=== PATIENT | male | born 1975 | race Caucasian/White ===

== ENCOUNTER 2019-02-10 08:12 | Outpatient (CLI) | payer MEDICAID ==
[2019-02-10 08:34] VITALS: BMI 29.7
== END 2019-02-10 08:18 | disposition critical access hospital (66) ==
LOC: AMBL 08:12
PROVIDERS: ATTEND Emergency Medicine
DX: R51 Headache (principal); R52 Pain, unspecified; R50.9 Fever, unspecified; R11.0 Nausea

== ENCOUNTER 2019-02-10 08:22 | Emergency (ER) ==
[2019-02-10 08:34] VITALS: BP 155/95; TEMP 101.1; BMI 29.7
--- NOTE | 2019-02-10 09:00 | ED.PDOC ---
General ED Provider: Dr. TRISHA PEREA Chief Complaint: Non-specific Complaint Stated Complaint: Fever, chills, Aching. Patient states recently completed a 5 day cruise to [place] arriving back home on Saturday. States did not feel well on the cruise and spent much time in his cabin due to "dizziness/vertigo". Did not feel well all week. Remembers one shore excusion to [facility]. States did not eat any "strange" food. Denies tick or Mosquito bite. Denies skin rash. Complained of diffuse myalgias/arthralgias, fever and rigorus chills. 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 Smokes 1/2 ppd. Additionally his son was on trip and became ill yesterday with similar symptom and has N-V Time Seen by Physician: 08:45 Mode of Arrival: Ambulance Information Source: Patient Exam Limitations: No limitations Primary Care Provider: TRISHA WATERS Nursing and Triage Documentation Reviewed and Agree: Yes Does patient meet sepsis criteria?: Yes If yes, has appropriate treatment been initiated?: Yes System Inflammatory Response Syndrome: Temp 101F or Greater, Pulse >90 BPM Sepsis Protocol: For patient's 13 years and over: Temp is 96.8 and below OR 101 and greater Pulse >90 BPM Resp >20/minute Acutely Altered Mental Status Are patient's symptoms suggestive of a new infection, such as: -Pneumonia -Skin, Soft Tissue -Endocarditis -UTI -Bone, Joint Infection -Implantable Device -Acute Abdominal Infection -Wound Infection -Meningitis -Blood Stream Catheter Infection -Unknown Respiratory Complaint Exam - Respiratory Complaint/Exam Onset/Duration: 2days Symptoms Are: Still present Timing: Intermittent Initial Severity: Moderate Current Severity: Moderate Location: Chest Character: Reports: Non-productive cough Aggravating: Reports: Recumbent position Alleviating: Reports: None Associated Signs and Symptoms: Reports: Fever, Chills, Sore throat (Throat described as "dry") History of Healthcare-Acquired Pneumonia: No Related Surgical History: Reports: None Pulmonary Embolism Risk Factors: None Cardiac Risk Factors: Reports: None Pseudomonas Risk Factors: Reports: None Tuberculosis Risk Factors: Reports: Smoking Status Asthmaticus Risk Factors: Reports: None Home Oxygen Use: No Recent Stress Test: No Recent Echo/LV Function: No Current Antibiotic Use: No Current Asthma Medication Use: No Respiratory Distress: None Inadequate Respiratory Effort: No Dysphagia Present: No Stridor Present: No JVD Present: No Accessory Muscle Use: No Retractions: Not Present Diminished Breath Sounds: No Sinus Tenderness: None Grunting Respirations: No Kussmaul Respirations: No Differential Diagnoses: URI, Influenza Review of Systems - Review Of Systems Constitutional: Reports: Chills, Fever, Malaise, Weakness, Loss of appetite Eyes: Reports: No symptoms Ears, Nose, Mouth, Throat: Reports: Throat pain Respiratory: Reports: Cough GI: Reports: Nausea, Vomiting : Reports: No symptoms Musculoskeletal: Reports: No symptoms Skin: Reports: No symptoms Neurological: Reports: Headache, Tingling, Unable to move lower ext Endocrine: Reports: No symptoms Hematologic/Lymphatic: Reports: No symptoms All Other Systems: Reviewed and Negative Past Medical History - Past Medical History Previously Healthy: Yes Endocrine: Reports: None Cardiovascular: Reports: None Respiratory: Reports: None Hematological: Reports: None Gastrointestinal: Reports: None Genitourinary: Reports: None Neuro/Psych: Reports: None Musculoskeletal: Reports: None Cancer: Reports: None - Surgical History General Surgical History: Reports: None - Family History Family History: Reports: None - Social History Smoking Status: Current every day smoker, Light tobacco smoker Hx Substance Use: No Alcohol Screening: Occasionally Physical Exam - Physical Exam Appearance: Ill-appearing Pain Distress: Mild Eyes: KENIA, EOMI, Conjunctiva clear ENT: Ears normal, Nose normal, Oropharynx normal, Erythema Neck: Supple (No detectable nuchal rigidity or tightness, no tenderness to exam) Respiratory: Airway patent, Breath sounds clear, Breath sounds equal, Respirations nonlabored Cardiovascular: RRR, Pulses normal, No rub, No murmur GI/: Soft, Nontender, No masses, Bowel sounds normal, No Organomegaly Musculoskeletal: Normal strength, ROM intact, No edema, No calf tenderness Skin: Warm, Dry, Normal color Neurological: Sensation intact, Motor intact, Reflexes intact, Cranial nerves intact, Alert, Oriented Psychiatric: Affect appropriate, Mood appropriate Interpretation - Radiology Interpretation Radiology Interpretation By: Radiologist Exam Interpreted: CT Scan (Head-no acute abnorm. Oral Max Facial-Periapical dental abscess. multiple teeth missing; Abdom Pelvis-no acute findings; ) Critical Care Note - Critical Care Note Total Time (mins): 60 Course - Course Hematology/Chemistry: 02/10/19 09:20 02/10/19 09:20 Orders, Labs, Meds: Lab Review 02/10/19 02/10/19 02/10/19 09:20 09:20 09:20 WBC 10.48 H RBC 4.78 Hgb 13.9 L Hct 41.9 L MCV 87.7 MCH 29.1 MCHC 33.2 RDW Coeff of Telly 14.2 Plt Count 242 Immature Gran % (Auto) 0.3 Neut % (Auto) 82.0 Lymph % (Auto) 9.4 L [place] % (Auto) 8.0 Eos % (Auto) 0.1 Baso % (Auto) 0.2 Immature Gran # (Auto) 0.0 Neut # (Auto) 8.6 H Lymph # (Auto) 1.0 [place] # (Auto) 0.8 Eos # (Auto) 0.0 Baso # (Auto) 0.0 ESR Sodium 136.4 Potassium 3.62 Chloride 100.9 Carbon Dioxide 25.7 Anion Gap 13.42 BUN 10.9 Creatinine 0.87 Estimated GFR (MDRD) 97.00 BUN/Creatinine Ratio 12.52 Glucose 142.4 H Lactic Acid Calcium 8.73 Total Bilirubin 0.32 AST 34.0 ALT 34.9 Alkaline Phosphatase 71.6 Total Creatine Kinase 157.6 CK-MB (CK-2) 0.437 CK-MB (CK-2) % 0.2700 Total Protein 7.03 Albumin 4.09 Globulin 2.94 Albumin/Globulin Ratio 1.39 Urine Opiates Screen Ur Oxycodone Screen Urine Methadone Screen Ur Propoxyphene Screen Ur Barbiturates Screen U Tricyclic Antidepress Ur Phencyclidine Scrn Ur Amphetamine Screen U Methamphetamines Scrn U Benzodiazepines Scrn Urine Cocaine Screen U Cannabinoids Screen Lyme IgG 18 kDa Band Lyme IgG 23 kDa Band Lyme IgG 28 kDa Band Lyme IgG 30 kDa Band Lyme IgG 39 kDa Band Lyme IgG 41 kDa Band Lyme IgG 45 kDa Band Lyme IgG 58 kDa Band Lyme IgG 66 kDa Band Lyme IgG 93 kDa Band Lyme IgG W Blot Interp Lyme IgM 23 kDa Band Lyme IgM 39 kDa Band Lyme IgM 41 kDa Band Lyme IgM Interpretaton Hepatitis A IgM Ab Negative Hep Bs Antigen Negative Hep B Core IgM Ab Negative Hep C Ab Signal/Cutoff 0.1 Influ A Molecular Assay Influ B Molecular Assay Spotted Fever Grp IgM Rickettsia IgG Ab Rickettsia IgG Ab IFA 02/10/19 02/10/19 02/10/19 09:20 09:20 09:20 WBC RBC Hgb Hct MCV MCH MCHC RDW Coeff of Telly Plt Count Immature Gran % (Auto) Neut % (Auto) Lymph % (Auto) [place] % (Auto) Eos % (Auto) Baso % (Auto) Immature Gran # (Auto) Neut # (Auto) Lymph # (Auto) [place] # (Auto) Eos # (Auto) Baso # (Auto) ESR 6 Sodium Potassium Chloride Carbon Dioxide Anion Gap BUN Creatinine Estimated GFR (MDRD) BUN/Creatinine Ratio Glucose Lactic Acid 1.19 Calcium Total Bilirubin AST ALT Alkaline Phosphatase Total Creatine Kinase CK-MB (CK-2) CK-MB (CK-2) % Total Protein Albumin Globulin Albumin/Globulin Ratio Urine Opiates Screen Ur Oxycodone Screen Urine Methadone Screen Ur Propoxyphene Screen Ur Barbiturates Screen U Tricyclic Antidepress Ur Phencyclidine Scrn Ur Amphetamine Screen U Methamphetamines Scrn U Benzodiazepines Scrn Urine Cocaine Screen U Cannabinoids Screen Lyme IgG 18 kDa Band Absent Lyme IgG 23 kDa Band Absent Lyme IgG 28 kDa Band Absent Lyme IgG 30 kDa Band Absent Lyme IgG 39 kDa Band Absent Lyme IgG 41 kDa Band Absent Lyme IgG 45 kDa Band Absent Lyme IgG 58 kDa Band Absent Lyme IgG 66 kDa Band Absent Lyme IgG 93 kDa Band Absent Lyme IgG W Blot Interp Negative Lyme IgM 23 kDa Band Absent Lyme IgM 39 kDa Band Absent Lyme IgM 41 kDa Band Absent Lyme IgM Interpretaton Negative Hepatitis A IgM Ab Hep Bs Antigen Hep B Core IgM Ab Hep C Ab Signal/Cutoff Influ A Molecular Assay Influ B Molecular Assay Spotted Fever Grp IgM 1.02 H Rickettsia IgG Ab Positive H Rickettsia IgG Ab IFA 02/10/19 02/10/19 09:58 10:00 WBC RBC Hgb Hct MCV MCH MCHC RDW Coeff of Telly Plt Count Immature Gran % (Auto) Neut % (Auto) Lymph % (Auto) [place] % (Auto) Eos % (Auto) Baso % (Auto) Immature Gran # (Auto) Neut # (Auto) Lymph # (Auto) [place] # (Auto) Eos # (Auto) Baso # (Auto) ESR Sodium Potassium Chloride Carbon Dioxide Anion Gap BUN Creatinine Estimated GFR (MDRD) BUN/Creatinine Ratio Glucose Lactic Acid Calcium Total Bilirubin AST ALT Alkaline Phosphatase Total Creatine Kinase CK-MB (CK-2) CK-MB (CK-2) % Total Protein Albumin Globulin Albumin/Globulin Ratio Urine Opiates Screen Negative Ur Oxycodone Screen Negative Urine Methadone Screen Negative Ur Propoxyphene Screen Negative Ur Barbiturates Screen Negative U Tricyclic Antidepress Negative Ur Phencyclidine Scrn Negative Ur Amphetamine Screen Positive U Methamphetamines Scrn Positive U Benzodiazepines Scrn Negative Urine Cocaine Screen Negative U Cannabinoids Screen Negative Lyme IgG 18 kDa Band Lyme IgG 23 kDa Band Lyme IgG 28 kDa Band Lyme IgG 30 kDa Band Lyme IgG 39 kDa Band Lyme IgG 41 kDa Band Lyme IgG 45 kDa Band Lyme IgG 58 kDa Band Lyme IgG 66 kDa Band Lyme IgG 93 kDa Band Lyme IgG W Blot Interp Lyme IgM 23 kDa Band Lyme IgM 39 kDa Band Lyme IgM 41 kDa Band Lyme IgM Interpretaton Hepatitis A IgM Ab Hep Bs Antigen Hep B Core IgM Ab Hep C Ab Signal/Cutoff Influ A Molecular Assay Positive by naat H Influ B Molecular Assay Negative by naat Spotted Fever Grp IgM Rickettsia IgG Ab Rickettsia IgG Ab IFA Orders Category Date Time Status EKG-(ED ONLY) Stat CARDIO 02/10/19 09:01 Completed IV [ED IV/MEDIPORT/POWERPORT] .ONCE EMERGENCY 02/10/19 09:01 Active BLOOD CULTURE Stat LAB 02/10/19 09:20 Completed CBC W/ AUTO DIFF Stat LAB 02/10/19 09:20 Completed CMP [COMPREHENSIVE METABOLIC PANEL] Stat LAB 02/10/19 09:20 Completed CPK [CREATINE KINASE] Stat LAB 02/10/19 09:20 Completed ESR Stat LAB 02/10/19 09:20 Completed FLU A & B MOLECULAR [FLU A/B MOLECULAR] Stat LAB 02/10/19 09:58 Completed HEPATITIS PANEL, ACUTE Stat LAB 02/10/19 09:20 Completed LACTIC ACID Stat LAB 02/10/19 09:20 Completed LYME, WESTERN BLOT, SERUM Stat LAB 02/10/19 09:20 Completed RAPID STREP SCREEN [MOLECULAR GROUP A STREP] Stat LAB 02/10/19 09:58 Completed WALLACE MTN SPOTTED FEVER,IgG Stat LAB 02/10/19 09:20 Completed WALLACE MTN SPOTTED FEVER,IgM Stat LAB 02/10/19 09:20 Completed URINE DRUG SCREEN (RAPID FOR ED) [DRUG SCREEN, URINE, LAB 02/10/19 10:00 Completed RAPID] Stat 0.9 % Sodium Chloride [Saline Flush] MEDS 02/10/19 09:01 Discontinued 1 syr IVF PRN PRN 0.9 % Sodium Chloride [Saline Flush] MEDS 02/10/19 09:44 Discontinued 1 syr IVF PRN PRN Acetaminophen [Tylenol] MEDS 02/10/19 09:18 Discontinued 650 mg PO ONCE STA Oseltamivir Phosphate [Tamiflu] MEDS 02/10/19 10:45 Discontinued 75 mg PO ONCE STA Piperacillin Sodium/Tazobactam [Zosyn 3.375 gm] 3.375 MEDS 02/10/19 10:35 Discontinued gm 0.9 % Sodium Chloride [Sodium Chloride] 50 ml IV ONCE Sodium Chloride 0.9% [Sodium Chloride] 1,000 ml MEDS 02/10/19 09:[address] ABDOMEN/PELVIS WO CONTRAST Stat RADS 02/10/19 09:[address] CHEST W/O CONTRAST Stat RADS 02/10/19 09:[address] HEAD W/O CONTRAST Stat RADS 02/10/19 09:[address] MAXILLOFACIAL W/O CONTRAST Stat RADS 02/10/19 09:42 Completed Medications Discontinued Medications Generic Name Dose Route Start Last Admin Trade Name Freq PRN Reason Stop Dose Admin Acetaminophen 650 mg 02/10/19 09:18 02/10/19 10:08 Tylenol PO 02/10/19 09:19 650 mg ONCE STA Administration Sodium Chloride 1,000 mls @ 500 mls/hr 02/10/19 09:44 02/10/19 10:23 Sodium Chloride IV 02/10/19 11:43 500 mls/hr BOLUS STA Administration Piperacillin Sod/Tazobactam 50 mls @ 50 mls/hr 02/10/19 10:35 02/10/19 10:54 Sod 3.375 gm/ Sodium Chloride IV 02/10/19 11:34 50 mls/hr ONCE STA Administration Oseltamivir Phosphate 75 mg 02/10/19 10:45 02/10/19 10:58 Tamiflu PO 02/10/19 10:46 75 mg ONCE STA Administration Sodium Chloride 1 syr 02/10/19 09:01 02/10/19 10:22 Saline Flush IVF 1 syr PRN PRN Administration To flush IV Sodium Chloride 1 syr 02/10/19 09:44 Saline Flush IVF PRN PRN To flush IV Vital Signs: Temp Pulse Resp BP Pulse Ox 02/10/19 08:51 101.1 F H 99 H 20 155/95 H 95 06/11/19 08:24 101.1 F H 99 H 20 155/95 H 95 Departure - Departure Time of Disposition: 13:45 Disposition: HOME SELF-CARE Discharge Problem: Cephalgia, Streptococcal sore throat, Influenza A H1N1 infection, Methamphetamine abuse, Dental abscess Instructions: Strep Throat (ED), Influenza (ED) Condition: Fair Pt referred to PMD for follow-up: Yes IPMP verified?: Yes Additional Instructions: Force fluids Seek follow up with Dentist Avoid Meth Use Take Tylenol o tylenol for fever or pain Prescriptions: Amoxicillin/Potassium Clav [Augmentin 875-125 Tablet] 1 each PO BIDPC 10 Days # 20 tablet Oseltamivir Phosphate [Tamiflu] 75 mg PO DAILY #4 capsule Allergies/Adverse Reactions: Allergies No Known Allergies Allergy (Unverified 02/10/19 08:54) Home Medications: Ambulatory Orders Amoxicillin/Potassium Clav [Augmentin 875-125 Tablet] 1 each PO BIDPC 10 Days # 20 tablet 02/10/19 Oseltamivir Phosphate [Tamiflu] 75 mg PO DAILY #4 capsule 02/10/19 Transfer Form Completed: Yes Disposition Discussed With: Patient Additional Information: Patient and aprised of diagnostic findings/ Has received IV fluids and IV antibiotics Feeling better being capable of moving upper and lower extremities without unequal paresis
[2019-02-10] MEDS ORDERED: TYLENOL PO STA (09:18)
[2019-02-10] MEDS ORDERED: SODIUM CHLORIDE 1,000 ML IV STA (09:44)
--- NOTE | 2019-02-10 09:57 | CT ---
EXAM: CT of the head without contrast History: Severe headache. Comparison: Head CT 06/03/2011 Technique: Multiplanar CT images through the head were obtained without the administration of IV con trast Findings: Mild to moderate mucosal thickening of the paranasal sinuses. Mastoid air cells are clear . No acute calvarial abnormalities. Intracranially the ventricular and cisternal spaces are normal in size, shape and configuration for a patient of this age. No dominant mass or midline shift. No hydrocephalous. No acute intracranial hemorrhage or abnormal extraaxial fluid collections. Impression: 1. No acute intracranial process. 2. Mild to moderate paranasal sinus disease
--- NOTE | 2019-02-10 10:11 | CT ---
EXAM: CT of the abdomen pelvis without contrast History: Fever and sepsis, nausea. Comparison: Chest CT 02/10/2019 Technique: Multiplanar CT images through the abdomen pelvis were obtained without the administration of IV contrast Findings: Subsegmental atelectasis seen within the lower lungs. No acute osseous abnormalities. Ch ronic compression deformity involving superior endplate of L2. No renal stones and no hydronephrosis. No gallstones identified by CT. No focal liver or splenic le sions. No peripancreatic inflammation. Adrenal glands are unremarkable. No bladder wall thickening . The visualized appendix is not dilated or inflamed. Prostate is not enlarged. No perirectal infl ammation. Mild to moderate colonic stool. A few borderline dilated fluid-filled loops of small asad l. No free air and no ascites. No abdominal aortic aneurysm. No lymphadenopathy. Impression: 1. A few borderline dilated fluid filled loops of small bowel probably related to enteritis or ileus . An early developing partial small bowel obstruction is considered less likely. 2. No other significant findings
--- NOTE | 2019-02-10 10:15 | CT ---
EXAM: CT of the chest without contrast History: Fever and nausea, sepsis Comparison: CT abdomen pelvis 02/10/2019 Technique: Multiplanar CT images through the thorax were obtained without the administration of IV c ontrast Findings: Heart size is upper limits of normal. Trace anterior pericardial fluid. No thoracic aort ic aneurysm. No pathologically enlarged axillary lymph nodes. No enlarged mediastinal lymph nodes. Evaluation for hilar lymph nodes is limited due to the lack of contrast administration. No pleural fluid and no pneumothorax. Mild diffuse bronchial wall thickening and scattered areas of subsegmenta l atelectasis. No consolidated pneumonia. No suspicious lung masses or lung nodules. For details in the upper abdomen, please see dedicated CT abdomen pelvis done on the same day. No ac umberto osseous abnormalities. Impression: Diffuse bronchial wall thickening and scattered areas of subsegmental atelectasis. No c onsolidated pneumonia
--- NOTE | 2019-02-10 10:20 | CT ---
EXAM: CT of the maxillofacial region without contrast History: Headache and left-sided tooth abscess with fever. Technique: Multiplanar CT images through the maxillofacial region were obtained without the administ ration of IV contrast Findings: The visualized intracranial contents demonstrate no grossly acute findings. Orbits are in tact. Mastoid air cells are clear. Mild to moderate mucosal thickening of the bilateral maxillary sinuses and ethmoid air cells. Mild mucosal thickening of the sphenoid sinuses. Frontal sinuses are hypopla stic. Surrounding soft tissues demonstrate no grossly acute findings. Evaluation for abscess is sepulveda ited due to lack of contrast administration. A few prominent bilateral nodes are probably reactive. Multiple missing teeth and scattered dental caries. A few periapical dental lucencies are seen invo lving the maxilla. Impression: 1. Mild to moderate paranasal sinusitis. 2. Periapical dental lucencies are seen involving the maxilla most compatible with periapical dental abscesses. Correlate dental exam. 3. Multiple missing teeth and multiple dental caries. Also correlate with dental exam.
[2019-02-10] MEDS ORDERED: ZOSYN 3.375 GM 3.375 GM in SODIUM CHLORIDE 50 ML IV STA (10:35)
[2019-02-10] MEDS ORDERED: TAMIFLU PO STA (10:45)
== END 2019-02-10 13:10 | disposition home or self-care (01) ==
LOC: ED 08:22
DX: J02.0 Streptococcal pharyngitis (principal); J11.1 Influenza due to unidentified influenza virus with other respiratory manifestations; K04.7 Periapical abscess without sinus; F15.10 Other stimulant abuse, uncomplicated; R51 Headache; F17.210 Nicotine dependence, cigarettes, uncomplicated; R05 Cough; R11.2 Nausea with vomiting, unspecified
CPT/HCPCS: 36415; 80053; 80074; 80306; 82550; 82553; 83605; 85025; 85651; 86617; 86757; 87040; 87502; 87651; 93005; 93010; 96361; 96365; 99283